=== PATIENT | male | born 1965 | race Caucasian/White ===

== ENCOUNTER 2017-05-13 08:02 | Emergency (ER) | payer BC ==
--- NOTE | 2017-05-13 08:54 | UC ---
Complaint Female HPI - History Of Current Complaint Chief Complaint: UCGeneralIllness Stated Complaint: YEAST INFECTION Time Seen by Provider: 05/13/17 08:46 - Allergies/Home Medications Allergies/Adverse Reactions: Allergies Allergy/AdvReac Type Severity Reaction Status Date / Time No Known Allergies Allergy Verified 05/13/17 08:05 Home Medications: Home Medications NK [No Home Medications Reported] 05/13/17 [History Confirmed 05/13/17] PMH/Surg Hx/FS Hx/Imm Hx - Surgical History Surgical History: None - Social History Alcohol Use: Occasionally Substance Use Type: None Smoking Status (MU): Never Smoked Tobacco Physical Exam Vital Signs: Initial Vital Signs Temp 97.4 F 05/13/17 08:06 Pulse 63 05/13/17 08:06 Resp 16 05/13/17 08:06 BP 166/90 05/13/17 08:06 Pulse Ox 100 05/13/17 08:06
--- NOTE | 2017-05-13 08:56 | UC ---
Complaint Male HPI - HPI Summary HPI Summary: 51 y/o male presents to the urgent care c/o penile yeast infection for the past 6 weeks. Pt states sometime he has a redness with a white secretion around his glande. He has applied OTC creams it improves for a few days and then redness returns with itchiness. Pt dneis urinary symptoms, Hx of STD's, penile discharge , fever, SOB, chest pain, N/V/D, back pain. - History of Current Complaint Chief Complaint: UCGeneralIllness Stated Complaint: YEAST INFECTION Time Seen by Provider: 05/13/17 08:46 Hx Obtained From: Patient Onset/Duration: Gradual Onset, Lasting Weeks - 6 weeks, Still Present Timing: Intermittent, Lasting Weeks Severity Initially: Mild Severity Currently: Moderate Pain Intensity: 0 Pain Scale Used: 0-10 Numeric Location: Penis - around glande Aggravating Factor(s): Palpation Alleviating Factor(s): Meds Associated Signs And Symptoms: Positive: Penile Swelling - mild. Negative: Back Pain, Fever, Hematuria, Dysuria, Penile Discharge - Risk Factors Testicular Torsion: Negative - Allergies/Home Medications Allergies/Adverse Reactions: Allergies Allergy/AdvReac Type Severity Reaction Status Date / Time No Known Allergies Allergy Verified 05/13/17 08:05 PMH/Surg Hx/FS Hx/Imm Hx Previously Healthy: Yes - Pt denies PMHX - Surgical History Surgical History: None - Family History Known Family History: Positive: Cardiac Disease - Social History Occupation: Employed Full-time Lives: With Family Alcohol Use: Occasionally Substance Use Type: None Smoking Status (MU): Never Smoked Tobacco Review of Systems Constitutional: Negative Skin: Other - penile glande with redness and white secretion Eyes: Negative ENT: Negative Respiratory: Negative Cardiovascular: Negative Gastrointestinal: Negative Genitourinary: Negative Motor: Negative Neurovascular: Negative Musculoskeletal: Negative Neurological: Negative Psychological: Negative Is Patient Immunocompromised?: No All Other Systems Reviewed And Are Negative: Yes Physical Exam Triage Information Reviewed: Yes Appearance: Well-Appearing, No Pain Distress, Well-Nourished Vital Signs: Initial Vital Signs Temp 97.4 F 05/13/17 08:06 Pulse 63 05/13/17 08:06 Resp 16 05/13/17 08:06 BP 166/90 05/13/17 08:06 Pulse Ox 100 05/13/17 08:06 Vital Signs Reviewed: Yes Eye Exam: Normal Eyes: Positive: Conjunctiva Clear - PERRLA, EOMI ENT Exam: Normal ENT: Positive: Normal ENT inspection, Hearing grossly normal, Pharynx normal, TMs normal Neck exam: Normal Neck: Positive: Supple, Nontender, No Lymphadenopathy Respiratory Exam: Normal Respiratory: Positive: Chest non-tender, Lungs clear, Normal breath sounds, No respiratory distress Cardiovascular Exam: Normal Cardiovascular: Positive: RRR, No Murmur, Pulses Normal, Brisk Capillary Refill Abdominal Exam: Normal Abdomen Description: Positive: Nontender, No Organomegaly, Soft, Other: - :I was assisted by Nurse Dorita. Circumcised penis, both testicles are descended. No masses are appreciated. Positive cremasteric reflex.Glande with moderate erythema and discrete white yellowish secretion observed, sample obtained for culture. non tender to palpation. no urethral discahrge observed.. Negative: CVA Tenderness (R), CVA Tenderness (L) Bowel Sounds: Positive: Present Musculoskeletal Exam: Normal Neurological Exam: Normal Psychological Exam: Normal Skin Exam: Normal Complaint Male Course/Dx - Course Course Of Treatment: 51 y/o male presents to the urgent care c/o penile yeast infection for the past 6 weeks. Pt states sometime he has a redness with a white secretion around his glande. He has applied OTC creams it improves for a few days and then redness returns with itchiness. Pt dneis urinary symptoms, Hx of STD's, penile discharge, fever, SOB, chest pain, N/V/D, back pain.Hx Obtained.On examination Pt with a balanoposthitis. Specimen obtained and sent for culture. Pt decline screnning for STD's. UA ordered, result: negative Pt will be Tx as candidiasis. However if any other abnormality in the culture Pt advised he will be notified. Pt Rx Ketoconazole topical cream and Hydrocortisone topical cream to allevaite symptoms. Pt Advised to f/u with PCP for blood work and management in elevated BP. PT's BP elevated today. advised to decrease salt in his diet and monitor BP. Pt understood and agreed with plan of care and left the clinic ambulating. - Differential Dx/Diagnosis Differential Diagnosis/HQI/PQRI: Phimosis, Priaprism, Paraphimosis, Prostatitis , Urinary Tract Infection, Other - balanitis Provider Diagnoses: 1-Balanoposthitis. 2-Elevated BP w/o Hx of HTN Discharge - Discharge Plan Condition: Stable Disposition: HOME Prescriptions: Hydrocortisone 2.5% CREAM(NF) 1 applic TOPICAL BID #1 tube Ketoconazole 2 % CREAM (NF) [Nizoral 2% CREAM (NF)] 1 applic TOPICAL DAILY #1 tube Patient Education Materials: Balanitis (ED), Low Sodium Diet (ED) Referrals: Greg Acharya MD [Primary Care Provider] - 1 Week Additional Instructions: 1- Please apply topical creams as directed to alleviate symptoms 2- Specimen was sent to lab if any abnormality you will receive a call from us for further treatment. 3-If symptoms do not improve or worsen please return to the urgent care or f/u with your PCP for further evaluation and treatment. 4- Your BP today is elevated, please decrease salt in your diet, monitor your BP , if it continues to be elevated please f/y with your PCP for further management.
--- NOTE | 2017-05-15 12:53 | UC ---
Progress - Progress Note Progress Note: + group B Strep and normal pal will start Amox 875mg BID x 7 days Please call and advise confirm PCP f/u
== END 2017-05-13 09:25 | disposition home or self-care (01) ==
LOC: UCEAST 08:02
DX: N47.6 Balanoposthitis (principal); B95.1 Streptococcus, group B, as the cause of diseases classified elsewhere; R03.0 Elevated blood-pressure reading, without diagnosis of hypertension
CPT/HCPCS: 81003; 87070; 87077; 99202; G0463

== ENCOUNTER 2017-06-03 07:11 | Emergency (ER) | payer BC ==
--- NOTE | 2017-06-03 07:22 | UC ---
Complaint Male HPI - HPI Summary HPI Summary: 51 year old male presents with complains of rash on the head on the penis. - History of Current Complaint Stated Complaint: BALANITIS Time Seen by Provider: 06/03/17 07:17 Hx Obtained From: Patient Onset/Duration: Sudden Onset Timing: Constant Severity Initially: Moderate Severity Currently: Moderate Pain Scale Used: 0-10 Numeric - 5 Location: Penis Character: Sharp, Burning - Allergies/Home Medications Allergies/Adverse Reactions: Allergies Allergy/AdvReac Type Severity Reaction Status Date / Time No Known Allergies Allergy Verified 06/03/17 07:20 PMH/Surg Hx/FS Hx/Imm Hx Previously Healthy: Yes - Surgical History Surgical History: None - Family History Known Family History: Positive: Cardiac Disease - Social History Alcohol Use: Occasionally Substance Use Type: None Smoking Status (MU): Never Smoked Tobacco Review of Systems Constitutional: Negative Skin: Negative Eyes: Negative ENT: Negative Respiratory: Negative Cardiovascular: Negative Gastrointestinal: Negative Genitourinary: Other - balanitis excoriation head of penis Motor: Negative Neurovascular: Negative Musculoskeletal: Negative Neurological: Negative Psychological: Negative All Other Systems Reviewed And Are Negative: Yes Physical Exam Triage Information Reviewed: Yes Vital Signs Reviewed: Yes Eye Exam: Normal ENT Exam: Normal Dental Exam: Normal Neck exam: Normal Neck: Positive: 1 Respiratory Exam: Normal Cardiovascular Exam: Normal Abdominal Exam: Normal Musculoskeletal Exam: Normal Neurological Exam: Normal Psychological Exam: Normal Skin: Positive: Other - balanitis excoriation head of penis Complaint Male Course/Dx - Differential Dx/Diagnosis Provider Diagnoses: balantis. excoriation head of penis Discharge - Discharge Plan Condition: Stable Disposition: HOME Prescriptions: Amoxicillin/Clavulanate TAB* [Augmentin TAB 875*] 875 mg PO BID #20 tab Clotrimazole/Betamethasone* [Lotrisone Cream*] 1 applic TOPICAL BID #45 gm Patient Education Materials: Balanitis (ED) Referrals: Greg Acharya MD [Primary Care Provider] - Gideon Wright MD [Medical Doctor] -
== END 2017-06-03 07:37 | disposition home or self-care (01) ==
LOC: UCEAST 07:11
DX: N48.1 Balanitis (principal)
CPT/HCPCS: 99212; G0463